=== PATIENT | male | born 1990 | race Caucasian/White ===

== ENCOUNTER 2022-10-07 23:11 | Emergency (ER) | payer SELFPAY ==
[~2022-10-07] VITALS: Ht 175.3 cm; Wt 86.2 kg
[2022-10-07 23:15] VITALS: BP 135/98
--- NOTE | 2022-10-07 23:17 | NUR ---
Patient taken to bed 5.
--- NOTE | 2022-10-07 23:29 | NUR ---
Patient resting in bed, alert, chest rise and fall symmetrical, no s/s of pain or s/s of distress, on monitor, father at bedside.
--- NOTE | 2022-10-08 01:59 | NUR ---
Patient resting in bed, alert, chest rise and fall symmetrical, no s/s of pain or s/s of distress, on monitor, father at bedside.
[2022-10-08] MEDS ORDERED: NACL 0.9% 1,000 ML IV ONE (03:15)
--- NOTE | 2022-10-08 03:59 | NUR ---
Patient resting in bed, alert, chest rise and fall symmetrical, no s/s of pain or s/s of distress, on monitor, father at bedside.
--- NOTE | 2022-10-08 05:30 | NUR ---
Patient resting in bed, alert, chest rise and fall symmetrical, no s/s of pain or s/s of distress, on monitor, father at bedside.
[2022-10-08 06:06] VITALS: BP 112/68
--- NOTE | 2022-10-08 06:06 | NUR ---
Patient discharged, in care of patient's father, with v/s stable. Written and verbal after care instructions given and explained. Patient verbalized understanding. Ambulatory with steady gait. All questions addressed prior to discharge. Advised to follow up with PMD. Patient able to safely ambulate 25 feet without help. Patient's father signed for patient's discharge and agreed to wait in lobby with patient until picked up by family. Patient and patient's father given warm blankets.
== END 2022-10-08 06:06 | disposition home or self-care (01) ==
LOC: MED 23:11
DX: R41.82 Altered mental status, unspecified (principal); F10.129 Alcohol abuse with intoxication, unspecified; Y90.9 Presence of alcohol in blood, level not specified
CPT/HCPCS: 36415; 96360; 99283; G0482